=== PATIENT | male | born 1965 | race Caucasian/White ===

== ENCOUNTER 2016-07-18 09:30 | Inpatient (IN) | payer BC ==
[2016-07-18] MEDS ORDERED: Diltiazem 25 MG/5 ML SDV IVPUSH ONE (10:20)
[2016-07-18] MEDS ORDERED: Sodium Chloride 0.9% 1,000 ML IV ONE (10:21)
--- NOTE | 2016-07-18 11:12 | EDM.PDOC ---
ED HISTORY OF PRESENT ILLNESS - General Chief Complaint: Cardiovascular Problem Stated Complaint: RAPID HEART Time Seen by Provider: 07/18/16 10:44 Source: Reports: Patient History Limitations: Reports: No limitations - History of Present Illness INITIAL COMMENTS - FREE TEXT/NARRATIVE: 50 years ols w m came to the ed due to episodic CP with palpitations. ECG showed a fib with RVR rate 167-112,. No N/V/D or other medical complains/issues Symptom Onset Date: 07/18/16 Symptom Onset Time: 09:00 Timing/Duration: Reports: Hour(s):, Intermittent Location, General: Reports: chest Quality: Reports: Dull Improves with: Reports: None Worsens with: Reports: None Associated Symptoms: Reports: chest pain (subsided) - Related Data Allergies/ADRs: Allergies Allergy/AdvReac Type Severity Reaction Status Date / Time azithromycin [From Zithromax] Allergy UNKNOWN Verified 07/18/16 12:18 Home Meds: Home Meds Esomeprazole [NexIUM] 40 mg PO BEDTIME 07/06/13 [History] Methylcellulose [Fiber Therapy] 500 mg PO DAILY PRN 07/06/13 [History] Mometasone Furoate [Nasonex [place]] 2 sprays BRIAN DAILY 07/06/13 [History] Multivitamin [Multi-Vitamin Daily] 1 each PO DAILY 07/06/13 [History] Diltiazem HCl [Cardizem Cd] 120 mg PO DAILY #30 cap.er.24h 07/18/16 [Rx] ED ROS GENERAL - Review of Systems Review Of Systems: See Below Constitutional: Reports: no symptoms HEENT: Reports: No symptoms Respiratory: Reports: no symptoms Cardiovascular: Reports: Palpitations Endocrine: Reports: no symptoms GI/Abdominal: Reports: No symptoms : Reports: no symptoms Musculoskeletal: Reports: no symptoms Skin: Reports: no symptoms Neurological: Reports: no symptoms Hematologic/Lymphatic: Reports: no symptoms Immunologic: Reports: no symptoms ED EXAM, GENERAL - Physical Exam Exam: See Below Exam Limited By: No limitations General Appearance: alert, WD/WN, moderate distress, obese Ears: normal external exam, normal canal, hearing grossly normal, normal TMs Ear Exam: bilateral ear: auricle normal, canal normal, TM normal Nose: normal inspection, normal mucosa, no blood Throat/Mouth: Normal inspection, Normal lips, Normal teeth, Normal gums, Normal oropharynx, Normal voice, No airway compromise Head: atraumatic, normocephalic Neck: normal inspection, supple, non-tender, full range of motion Respiratory/Chest: no respiratory distress, lungs clear, normal breath sounds, no accessory muscle use, chest non-tender Cardiovascular: no edema, no gallop, no JVD, no murmur, no rub, tachycardia, irregularly irregular GI/Abdominal: normal bowel sounds, soft, non tender, no organomegaly, no distention, no abnormal bruit, no mass (Male) Exam: Deferred Rectal (Males) Exam: Deferred Back Exam: normal inspection, full range of motion, NT Extremities: normal inspection, normal range of motion, non-tender, normal capillary refill, no pedal edema Neurological: alert, oriented, CN II-XII intact, normal cognition, normal gait, normal reflexes, no motor/sensory deficits Psychiatric: normal affect, normal mood Skin Exam: Warm, Dry, Intact, Normal color, No rash Lymphatic: no adenopathy EKG INTERPRETATION EKG Date: 07/18/16 Time: 09:55 Rhythm: a-fib Rate (beats/min): 116 [place]: normal P-wave: absent QRS: normal ST-T: normal QT: normal Comparison: NA - no prior EKG Course - Vital Signs Text/Narrative:: 50 years ols w m came to the ed due to episodic CP with palpitations. ECG showed a fib with RVR rate 167-112,. No N/V/D or other medical complains/issues PE: A fib with RVR Labs: NL Including TSH ECG: A fib Impression: A fib with RVR Tx: Cardiazem 20 mg, then Cardiazem drip Consultation: Dr. Ballard, accepted pt fro admission Plan: Admit to ICU Last Recorded V/S: Last Vital Signs Temp 36.4 C 07/18/16 14:42 Pulse 81 07/18/16 17:42 Resp 16 07/18/16 16:59 BP 113/78 07/18/16 17:42 Pulse Ox 99 07/18/16 16:59 - Orders/Labs/Meds Labs: Laboratory Tests 07/18/16 07/18/16 07/18/16 Range/Units 10:10 10:10 10:10 WBC 6.4 (4.5-12.0) X10-3/uL RBC 5.13 (4.30-5.75) x10(6)uL Hgb 15.2 (11.5-15.5) g/dL Hct 45.2 (30.0-51.3) % MCV 88.0 (80-96) fL MCH 29.6 (27.7-33.6) pg MCHC 33.6 (32.2-35.4) g/dL RDW 12.4 (11.5-15.5) % Plt Count 302 (125-369) X10(3)uL MPV 8.1 (7.4-10.4) fL Neut % (Auto) 67.6 (46-82) % Lymph % (Auto) 18.0 (13-37) % Ashley % (Auto) 9.2 (4-12) % Eos % (Auto) 4 (1.0-5.0) % Baso % (Auto) 1 (0-2) % Neut # 4.2 (1.6-8.3) # Lymph # 1.2 (0.6-5.0) # Ashley # 0.6 (0.0-1.3) # Eos # 0.3 (0.0-0.8) # Baso # 0.1 (0.0-0.2) # Sodium 140 (135-145) mmol/L Potassium 3.8 (3.5-5.3) mmol/L Chloride 106 (100-110) mmol/L Carbon Dioxide 24 (23-29) mmol/L BUN 14 (5-20) mg/dL Creatinine 0.9 (0.6-1.3) mg/dL Est Cr Clr Drug Dosing TNP Estimated GFR (MDRD) > 60 (>60) BUN/Creatinine Ratio 15.6 (9-20) Glucose 100 (80-116) mg/dL Calcium 8.8 (8.6-10.2) mg/dL Troponin I < 0.01 L (0.02-0.06) NG/ML TSH, Ultra Sensitive (0.4-5.5) nlU/mL 07/18/16 Range/Units 10:10 WBC (4.5-12.0) X10-3/uL RBC (4.30-5.75) x10(6)uL Hgb (11.5-15.5) g/dL Hct (30.0-51.3) % MCV (80-96) fL MCH (27.7-33.6) pg MCHC (32.2-35.4) g/dL RDW (11.5-15.5) % Plt Count (125-369) X10(3)uL MPV (7.4-10.4) fL Neut % (Auto) (46-82) % Lymph % (Auto) (13-37) % Ashley % (Auto) (4-12) % Eos % (Auto) (1.0-5.0) % Baso % (Auto) (0-2) % Neut # (1.6-8.3) # Lymph # (0.6-5.0) # Ashley # (0.0-1.3) # Eos # (0.0-0.8) # Baso # (0.0-0.2) # Sodium (135-145) mmol/L Potassium (3.5-5.3) mmol/L Chloride (100-110) mmol/L Carbon Dioxide (23-29) mmol/L BUN (5-20) mg/dL Creatinine (0.6-1.3) mg/dL Est Cr Clr Drug Dosing Estimated GFR (MDRD) (>60) BUN/Creatinine Ratio (9-20) Glucose (80-116) mg/dL Calcium (8.6-10.2) mg/dL Troponin I (0.02-0.06) NG/ML TSH, Ultra Sensitive 0.71 (0.4-5.5) nlU/mL Meds: Medications Discontinued Medications Generic Name Dose Route Start Last Admin Trade Name Freq PRN Reason Stop Dose Admin Calcium Polycarbophil 625 mg 07/19/16 09:00 Fibercon PO DAILY PRN CONSTIPATION Diltiazem HCl 20 mg 07/18/16 10:20 07/18/16 10:44 Diltiazem IVPUSH 07/18/16 10:21 20 mg ONETIME ONE Administration Diltiazem HCl 120 mg 07/18/16 17:28 07/18/16 17:42 Cardizem Cd PO 07/18/16 17:29 120 mg ONETIME ONE Administration Sodium Chloride 1,000 mls @ 999 mls/hr 07/18/16 10:21 07/18/16 10:41 Normal Saline IV 07/18/16 11:21 999 mls/hr .BOLUS ONE Administration Diltiazem HCl 100 mg/ Sodium 100 mls @ 5 mls/hr 07/18/16 12:00 07/18/16 15:11 Chloride IV 0 mg/hr TITRATE ZACHARY 0 mls/hr Protocol Titration 5 MG/HR Influenza Virus Vaccine 60 mcg 07/18/16 12:50 07/18/16 17:40 Fluzone/Fluarix Vaccine IM 07/18/16 12:51 60 mcg .ONCE ONE Administration Mometasone Furoate 0 gm 07/18/16 13:45 07/18/16 15:55 Nasonex [place] BRIAN 1 spr DAILY ZACHARY Administration Multivitamins/Minerals/Vitamin C 1 tab 07/18/16 13:45 07/18/16 15:57 Tab-A-Linnea PO 1 tab DAILY ZACHARY Administration Omeprazole 20 mg 07/18/16 21:00 Omeprazole PO BEDTIME ZACHARY Pneumococcal Polyvalent Vaccine 0.5 ml 07/18/16 12:50 07/18/16 17:57 Pneumovax 23 IM 07/18/16 12:51 0.5 ml .ONCE ONE Administration Sodium Chloride 10 ml 07/18/16 11:44 07/18/16 15:24 Saline Flush FLUSH 10 ml ASDIRECTED PRN Administration Keep Vein Open Departure - Departure Time of Disposition: 20:04 Disposition: Admitted As Inpatient 68 Condition: fair Clinical Impression: Atrial fibrillation with RVR
[2016-07-18] MEDS ORDERED: Sodium Chloride 0.9% 10 ML Syringe FLUSH PRN (11:44)
[2016-07-18] MEDS ORDERED: Diltiazem 100 MG in Sodium Chloride 0.9% 100 ML IV SCH (12:00)
[2016-07-18] MEDS ORDERED: Flu Vaccine 2016-17(36Mos+)/PF 60 MCG/0.5 ML Syringe IM ONE (12:50)
[2016-07-18] MEDS ORDERED: Pneumococcal Polyvalent-23 Vaccine 0.5 ML SDV IM ONE (12:50)
--- NOTE | 2016-07-18 13:38 | PCM.HP ---
H&P History of Present Illness - General Date of Service: 07/18/16 Source of Information: Patient History Limitations: Reports: No limitations - History of Present Illness Initial Comments - Free Text/Narative: This is a 50-year-old male patient that started having rapid heart rate this morning. He came to the ER was in rapid atrial fibrillation. He states 3 days ago he started having rapid heart rate on an airplane. He did nothing about it and eventually it resolved on its own. He states his father has a history of atrial fibrillation. He states he does use a couple of drinks a day.. He denies being excessive drinking. He denies chest pain, nausea, vomiting, diaphoresis, arm pain, jaw pain. - Related Data Allergies/Adverse Reactions: Allergies Allergy/AdvReac Type Severity Reaction Status Date / Time azithromycin [From Zithromax] Allergy UNKNOWN Verified 07/18/16 12:18 Home Medications: Home Meds Esomeprazole [NexIUM] 40 mg PO BEDTIME 07/06/13 [History] Methylcellulose [Fiber Therapy] 500 mg PO DAILY PRN 07/06/13 [History] Mometasone Furoate [Nasonex [place]] 2 sprays BRIAN DAILY 07/06/13 [History] Multivitamin [Multi-Vitamin Daily] 1 each PO DAILY 07/06/13 [History] Past Medical History Cardiovascular History: Reports: Afib Gastrointestinal History: Reports: GERD Musculoskeletal History: Reports: Other (see below) Other Musculoskeletal History: offering pain to knees bilaterally - Past Surgical History Cardiovascular Surgical History: Reports: None Social & Family History - Family History Cardiac: Reports: Afib, [place] Musculoskeletal: Reports: Arthritis Oncologic: Reports: Prostate - Tobacco Use Smoking Status *Q: Never Smoker Second Hand Smoke Exposure: No - Caffeine Use Caffeine Use: Reports: None - Alcohol Use Days Per Week of Alcohol Use: 7 Number of Drinks Per Day: 2 Total Drinks Per Week: 14 - Recreational Drug Use Recreational Drug Use: No H&P Review of Systems - Review of Systems: Review Of Systems: See Below General: Reports: no symptoms HEENT: Reports: no symptoms Pulmonary: Reports: no symptoms Cardiovascular: Reports: palpitations Gastrointestinal: Reports: No symptoms Genitourinary: Reports: no symptoms Musculoskeletal: Reports: no symptoms Skin: Reports: no symptoms Psychiatric: Reports: no symptoms Neurological: Reports: no symptoms Hematologic/Lymphatic: Reports: no symptoms Immunologic: Reports: no symptoms Exam - Exam Exam: See Below - Vital Signs Vital Signs: Last Vital Signs Temp 97.6 F 07/18/16 12:29 Pulse 104 H 07/18/16 12:29 Resp 15 07/18/16 12:29 BP 112/79 07/18/16 12:29 Pulse Ox 99 07/18/16 12:29 Weight: 228 lb 1 oz - Exam General: alert, oriented, cooperative HEENT: PERRLA, Conjunctiva clear, EOMI, Hearing intact, Mucosa moist & pink, Posterior pharynx clear, TMs clear Neck: supple, trachea midline. No: carotid bruit Lungs: Clear to auscultation, Normal respiratory effort Cardiovascular: irregular rhythm, tachycardia. No: systolic murmur, diastolic murmur Abdomen: normal bowel sounds, soft. No: organomegaly, guarding, rigidity, rebound, tenderness Back Exam: normal inspection, full range of motion, NT Extremities: 3, normal inspection, 10 Skin: warm, dry, intact Neurological: cranial nerves intact, reflexes equal bilateral Neuro Extensive - Mental Status: alert, oriented x3, normal mood/affect, normal cognition Neuro Extensive - Motor, Sensory, Reflexes: normal gait Psychiatric: alert, normal affect, normal mood - Patient Data Lab Results last 24 hrs: Laboratory Results - last 24 hr 07/18/16 Range/Units 12:15 Urine Color Yellow (YELLOW) Urine Appearance Clear (CLEAR) Urine pH 6.0 (5.0-6.5) Ur Specific [place] 1.010 (1.010-1.025) Urine Protein Negative (NEGATIVE) mg/dL Urine Glucose (UA) Normal (NEGATIVE) mg/dL Urine Ketones Negative (NEGATIVE) mg/dL Urine Occult Blood Negative (NEGATIVE) Urine Nitrite Negative (NEGATIVE) Urine Bilirubin Negative (NEGATIVE) Urine Urobilinogen Normal (NEGATIVE) mg/dL Ur Leukocyte Esterase Negative (NEGATIVE) Result Diagrams: 07/18/16 10:10 07/18/16 10:10 *Q Meaningful Use (ADM) - VTE *Q VTE Criteria *Q: - Stroke *Q Stroke Criteria *Q: - AMI *Q AMI Criteria *Q: - Problem List (1) Rapid atrial fibrillation SNOMED Code(s): 907413677 ICD Code: I48.91 - UNSPECIFIED ATRIAL FIBRILLATION Status: Acute Current Visit: Yes Problem List Initiated/Reviewed/Updated: Yes Orders Last 24hrs: Medication Orders Diltiazem HCl 100 mg/ Sodium (Chloride) 100 mls @ 5 mls/hr IV TITRATE ZACHARY; 5 MG /HR PRN Reason: Protocol Last Titration: 07/18/16 13:17 Dose: 10 mg/hr, 10 mls/hr Admin: 07/18/16 12:15 Dose: 5 mg/hr, 5 mls/hr Sodium Chloride (Saline Flush) 10 ml FLUSH ASDIRECTED PRN PRN Reason: Keep Vein Open Assessment/Plan Comment:: 1. Admit the patient for Cardizem drip. 2. Start an aspirin a day. If he does not convert to normal sinus rhythm then consider anticoagulation therapy for future cardioversion. 3. Diet regular 4. Up ad edgardo. 5. ICU admission with routine ICU orders
[2016-07-18] MEDS ORDERED: Mometasone Furoate Nasal Spray 17 GM Canister NAS SCH (13:45)
[2016-07-18] MEDS ORDERED: Multivitamin Tab PO SCH (13:45)
[2016-07-18] MEDS ORDERED: Diltiazem 120 MG Cap.CD PO ONE (17:28)
[2016-07-18 17:43] VITALS: BP 113/78
--- NOTE | 2016-07-18 17:58 | PCM.SN ---
- Free Text/Narrative Note: Patient spontaneous converted to normal sinus rhythm this afternoon. His asymptomatic. We'll discharge her home on Cardizem CD 120 and aspirin a day. Set up stress echo, cardiology consult.
--- NOTE | 2016-07-18 18:05 | PCM.DCSUM1 ---
Discharge Summary - Hospital Course Free Text/Narrative:: Hospital course-the patient was placed in the ICU and put on a Cardizem drip. The patient spontaneously converted to normal sinus rhythm. Patient does not meet criteria for Coumadin therapy. I will send him home on Cardizem CD 120 mg a day. I told the patient if he has another episode at home to wait an hour and if it does not resolve take extra CD 120 that day. It doesn't go away within 5 hours he should go to the nearest ER. Patient also should take a baby aspirin a day. Patient wants to see a medicare sales representative so that will be set up. We' ll also set up a stress echo at [facility]. Brief History: This is a 50-year-old male patient that started having rapid heart rate this morning. He came to the ER was in rapid atrial fibrillation. He states 3 days ago he started having rapid heart rate on an airplane. He did nothing about it and eventually it resolved on its own. He states his father has a history of atrial fibrillation. He states he does use a couple of drinks a day.. He denies being excessive drinking. He denies chest pain, nausea, vomiting, diaphoresis, arm pain, jaw pain. - Discharge Data Discharge Date: 07/18/16 Discharge Disposition: Home, Self-Care 01 Condition: Good - Discharge Diagnosis/Problem(s) (1) Rapid atrial fibrillation SNOMED Code(s): 842011547 ICD Code: I48.91 - UNSPECIFIED ATRIAL FIBRILLATION Status: Acute Current Visit: Yes - Patient Summary/Data Operative Procedure(s) Performed: egd with bx - Patient Instructions Diet: Heart Healthy Diet Activity: As Tolerated Driving: May Drive Today Showering/Bathing: May Shower Other/Special Instructions: 1. Recheck with Ela Sanchez in 7-10 days. 2. Stress echo at [facility]. 3. Cardiology appointment - Discharge Plan Prescriptions/Med Rec: Diltiazem HCl [Cardizem Cd] 120 mg PO DAILY #30 cap.er.24h Home Medications: Home Meds Esomeprazole [NexIUM] 40 mg PO BEDTIME 07/06/13 [History] Methylcellulose [Fiber Therapy] 500 mg PO DAILY PRN 07/06/13 [History] Mometasone Furoate [Nasonex [place]] 2 sprays BRIAN DAILY 07/06/13 [History] Multivitamin [Multi-Vitamin Daily] 1 each PO DAILY 07/06/13 [History] Diltiazem HCl [Cardizem Cd] 120 mg PO DAILY #30 cap.er.24h 07/18/16 [Rx] Forms: ED Department Discharge - Discharge Summary/Plan Comment DC Time >30 min.: No - Patient Data Vitals - Most Recent: Last Vital Signs Temp 97.6 F 07/18/16 14:42 Pulse 81 07/18/16 17:42 Resp 16 07/18/16 16:59 BP 113/78 07/18/16 17:42 Pulse Ox 99 07/18/16 16:59 Weight - Most Recent: 228 lb I&O - Last 24 hours: Intake & Output 07/18/16 07/18/16 07/18/16 06:59 14:59 22:59 Intake Total 14 14 Balance 14 14 Lab Results - Last 24 hrs: Laboratory Results - last 24 hr 07/18/16 Range/Units 12:15 Urine Color Yellow (YELLOW) Urine Appearance Clear (CLEAR) Urine pH 6.0 (5.0-6.5) Ur Specific [place] 1.010 (1.010-1.025) Urine Protein Negative (NEGATIVE) mg/dL Urine Glucose (UA) Normal (NEGATIVE) mg/dL Urine Ketones Negative (NEGATIVE) mg/dL Urine Occult Blood Negative (NEGATIVE) Urine Nitrite Negative (NEGATIVE) Urine Bilirubin Negative (NEGATIVE) Urine Urobilinogen Normal (NEGATIVE) mg/dL Ur Leukocyte Esterase Negative (NEGATIVE) Med Orders - Current: Current Medications Calcium Polycarbophil (Fibercon) 625 mg PO DAILY PRN PRN Reason: CONSTIPATION Mometasone Furoate (Nasonex [place]) 0 gm BRIAN DAILY ZACHARY Last Admin: 07/18/16 15:55 Dose: 1 spr Multivitamins/Minerals/Vitamin C (Tab-A-Linnea) 1 tab PO DAILY ZACHARY Last Admin: 07/18/16 15:57 Dose: 1 tab Omeprazole (Omeprazole) 20 mg PO BEDTIME ZACHARY Sodium Chloride (Saline Flush) 10 ml FLUSH ASDIRECTED PRN PRN Reason: Keep Vein Open Last Admin: 07/18/16 15:24 Dose: 10 ml Discontinued Medications Diltiazem HCl (Diltiazem) 20 mg IVPUSH ONETIME ONE Stop: 07/18/16 10:21 Last Admin: 07/18/16 10:44 Dose: 20 mg Diltiazem HCl (Cardizem Cd) 120 mg PO ONETIME ONE Stop: 07/18/16 17:29 Last Admin: 07/18/16 17:42 Dose: 120 mg Sodium Chloride (Normal Saline) 1,000 mls @ 999 mls/hr IV .BOLUS ONE Stop: 07/18/16 11:21 Last Admin: 07/18/16 10:41 Dose: 999 mls/hr Diltiazem HCl 100 mg/ Sodium (Chloride) 100 mls @ 5 mls/hr IV TITRATE ZACHARY; 5 MG /HR PRN Reason: Protocol Last Titration: 07/18/16 15:11 Dose: 0 mg/hr, 0 mls/hr Influenza Virus Vaccine (Fluzone/Fluarix 2015- Vaccine) 60 mcg IM .ONCE ONE Stop: 07/18/16 12:51 Last Admin: 07/18/16 17:40 Dose: 60 mcg Pneumococcal Polyvalent Vaccine (Pneumovax 23) 0.5 ml IM .ONCE ONE Stop: 07/18/16 12:51 Last Admin: 07/18/16 17:57 Dose: 0.5 ml *Q Meaningful Use (DIS) - VTE *Q VTE Criteria *Q: - Stroke *Q Stroke Criteria *Q: - AMI *Q AMI Criteria *Q:
[2016-07-18] MEDS ORDERED: Omeprazole 20 MG Cap.CR PO SCH (21:00)
[2016-07-19] MEDS ORDERED: Calcium Polycarbophil 625 MG Tab PO PRN (09:00)
== END 2016-07-18 18:21 | disposition home or self-care (01) | DRG 201 ==
LOC: FB.ED 09:30 → FB.ICU 11:58
PROVIDERS: ADMIT Family Medicine; ATTEND Family Medicine
DX: I48.0 Paroxysmal atrial fibrillation (principal); Z23 Encounter for immunization; Z82.49 Family history of ischemic heart disease and other diseases of the circulatory system; K21.9 Gastro-esophageal reflux disease without esophagitis
CPT/HCPCS: 80048; 81003; 84443; 84484; 85025; 90686; 90732; 93005; 96361; 96374; 99285; A9270-GY; J3490; J7030; J7040; J7050

== ENCOUNTER 2022-08-15 07:37 | Day surgery (SDC) | payer BC ==
[2022-08-15] MEDS ORDERED: Lidocaine 2% 5 ML SDV INJECT ONE (07:38)
[2022-08-15] MEDS ORDERED: Midazolam 1 MG/ML 2 ML SDV IV ONE (07:38)
[2022-08-15] MEDS ORDERED: Propofol 200 MG/20 ML SDV IV ONE (07:38)
[2022-08-15] MEDS ORDERED: Sodium Chloride 0.9% 10 ML Syringe FLUSH PRN (07:45)
[2022-08-15] MEDS: Lactated Ringers 1,000 ML IV SCH (08:10)
[2022-08-15 09:42] VITALS: PULSE 64
[2022-08-15] MEDS: Simethicone Drops 40 MG/0.6 ML 30 ML Bottle PO ONE (10:15)
[2022-08-15 12:03] VITALS: BP 108/57
== END 2022-08-15 11:30 | disposition home or self-care (01) ==
LOC: FB.SDS 07:37
PROVIDERS: ATTEND Surgery
DX: K21.00 Gastro-esophageal reflux disease with esophagitis, without bleeding (principal); K44.9 Diaphragmatic hernia without obstruction or gangrene; K29.50 Unspecified chronic gastritis without bleeding; I48.91 Unspecified atrial fibrillation; Z79.82 Long term (current) use of aspirin; Z79.899 Other long term (current) drug therapy; Z88.1 Allergy status to other antibiotic agents; Z88.4 Allergy status to anesthetic agent; Z79.01 Long term (current) use of anticoagulants
CPT/HCPCS: 00731; 43239; 88305; A9270; J2250; J2704; J7120